=== PATIENT | male | born 1945 | race Caucasian/White ===

== ENCOUNTER 2018-09-11 11:29 | Emergency (ER) | payer MEDICARE, SELFPAY ==
[2018-09-11 11:32] VITALS: BP 154/88; PULSE 63; RESP 14; TEMP 36.7; O2SAT 98; BMI 30.5
--- NOTE | 2018-09-11 11:35 | DI.RAD.S_ITS ---
PROCEDURE: XR HAND RT MIN 3V INDICATIONS: fall, ? dislocated fingers. TECHNIQUE: 3 views of the hand(s) acquired. COMPARISON: None. FINDINGS: Bones: There is dorsal dislocation of the middle phalanges of the 3rd and 4th digits with respect to the proximal phalanges. No definitive fractures are evident. No suspicious osseous lesions are identified. Soft tissues: No suspicious soft tissue calcifications. IMPRESSION: Dislocated proximal interphalangeal joints of the 3rd and 4th digits. Dictated by: Devante Peña M.D. on 09/11/2018 at 11:11 Approved by: Devante Peña M.D. on 09/11/2018 at 11:12
--- NOTE | 2018-09-11 11:52 | ED.UPPEXIN ---
HPI - Extremity Injury (Upper) <Eun Norman PA-C - Last Filed: 09/11/18 20:52> General Chief Complaint: Extremity Injury, Upper Stated Complaint: thinks dislocated multiple fingers right hand Time Seen by Provider: 09/11/18 11:51 Source: patient Mode of arrival: ambulatory Limitations: no limitations History of Present Illness HPI narrative: This 73-year-old right-handed male tripped on his boat, reached out and grabbed something (unsure what) to stop himself and caught his right hand. He has had pain in the medial 3 fingers since and thinks dislocated. He denies any numbness, has noted pain with movement but no weakness. He did not actually fall, denies head contusion or other injury. He thinks tetanus vaccine is up-to-date. Related Data Home Medications Medication Instructions Recorded Confirmed aspirin 81 mg PO DAILY 09/11/18 09/11/18 simvastatin 40 mg PO Q OTHER DAY 09/11/18 09/11/18 Allergies Allergy/AdvReac Type Severity Reaction Status Date / Time No Known Drug Allergies Allergy Verified 09/11/18 11:34 Review of Systems <Eun Norman PA-C - Last Filed: 09/11/18 20:52> Review of Systems ROS Unobtainable: All systems reviewed & are unremarkable except as noted in HPI and below PFSH <Eun Norman PA-C - Last Filed: 09/11/18 20:52> Medical History (Updated 09/11/18 @ 13:05 by Eun Norman PA-C) Hyperlipidemia (Chronic) Surgical History (Updated 09/11/18 @ 12:11 by Eun Norman PA-C) No history of previous surgery (Chronic) Social History Smoking Status: Never smoker Social History Smoking Status: Never smoker Exam <Eun Norman PA-C - Last Filed: 09/11/18 20:52> Narrative Exam Narrative: GENERAL APPEARANCE: Patient sitting comfortably, in no distress. LUNGS: Clear to auscultation bilaterally. HEART: Rate and rhythm regular without murmur, normal S1 and S2, no S3 or S4. MUSCULOSKELETAL: Right hand medial 3 fingers there is moderate effusion from the MC joints to the PIP joints, more pronounced over middle and ring. Tender over these joints, deviated at the PIP joints, no effusion or tenderness elsewhere. Full range of motion of the right wrist, thumb and pointer finger. NEUROVASCULAR: Right hand finger tips are warm and pink, sensation grossly intact On repeat exam following reduction, patient has full range of motion in all of the right hand fingers, strength is intact against resistance, neurovascular intact. Initial Vital Signs Initial Vital Signs: Vital Signs Temperature 98.1 F 09/11/18 11:32 Pulse Rate 63 09/11/18 11:32 Respiratory Rate 14 09/11/18 11:32 Blood Pressure 154/88 H 09/11/18 11:32 Pulse Oximetry 98 09/11/18 11:32 <DO Aravind Garland Last Filed: 09/12/18 07:16> Initial Vital Signs Initial Vital Signs: Vital Signs Temperature 98.1 F 09/11/18 11:32 Pulse Rate 63 09/11/18 11:32 Respiratory Rate 14 09/11/18 11:32 Blood Pressure 154/88 H 09/11/18 11:32 Pulse Oximetry 98 09/11/18 11:32 Procedures <PREMA Aguilar Last Filed: 09/11/18 20:52> [facility] [place] Procedure Side (if applicable): right Additional Comments: Digital block obtained the of palmar approach in right 3rd and 4th fingers with 1% plain lidocaine. Dislocations reduced.. Patient had full range of motion, strength intact against resistance, and sensation intact following. <DO Aravind Garland Last Filed: 09/12/18 07:16> Orthopedic Joint Reduction Joint #1: Time Out Performed: Yes Side: right Joint Reduction Location: finger Analgesia: nerve block Local Anesthesia: lidocaine 1% Technique used: direct manipulation Post-reduction neuro exam: intact Post-reduction vascular: intact Post Reduction X-Ray Obtained: No Splint Applied: No Patient Tolerated Procedure: Well Course <PREMA Aguilar Last Filed: 09/11/18 20:52> Orders Ordered: Discontinued Medications Ibuprofen (Advil) 800 mg PO NOW ONE Stop: 09/11/18 12:08 Last Admin: 09/11/18 12:26 Dose: 800 mg Vital Signs - 8 hr 09/11/18 13:27 Pulse Rate 70 Respiratory Rate 14 Blood Pressure [Left Arm] 139/84 Pulse Oximetry 98 <Denisa Estrada DO - Last Filed: 09/12/18 07:16> Orders Ordered: Discontinued Medications Ibuprofen (Advil) 800 mg PO NOW ONE Stop: 09/11/18 12:08 Last Admin: 09/11/18 12:26 Dose: 800 mg Vital Signs - 8 hr 09/11/18 13:27 Pulse Rate 70 Respiratory Rate 14 Blood Pressure [Left Arm] 139/84 Pulse Oximetry 98 MDM - Extremity Injury (Upper) <Eun Norman PA-C - Last Filed: 09/11/18 20:52> Imaging Data hand: Radiologist's impression: [address] [address] XRay Report Signed Patient: Brina Hicks#: [id number] : 8Acct:[id number] Age/Sex: 73 / MDate of Service: 09/11/18 Loc: ED Accession Number: [id number] Procedure: XR hand RT min 3V Ordering Provider: Denisa Estrada D.O. PROCEDURE: XR HAND RT MIN 3V INDICATIONS: fall, ? dislocated fingers. TECHNIQUE: 3 views of the hand(s) acquired. COMPARISON: None. FINDINGS: Bones: There is dorsal dislocation of the middle phalanges of the 3rd and 4th digits with respect to the proximal phalanges. No definitive fractures are evident. No suspicious osseous lesions are identified. Soft tissues: No suspicious soft tissue calcifications. IMPRESSION: Dislocated proximal interphalangeal joints of the 3rd and 4th digits. Dictated by: Devante Peña M.D. on 09/11/2018 at 11:11 Approved by: Devante Peña M.D. on 09/11/2018 at 11:12 Discharge Plan Departure Patient Disposition: Home Clinical Impression: Dislocation closed, fingers Qualifiers: Encounter type: initial encounter Qualified Code(s): S63.259A - Unspecified dislocation of unspecified finger, initial encounter Discharge Date/Time: 09/11/18 13:30 Interventions: ED Discharge Assessment Last Done: 09/11/18 13:29 Instructions: DI for Finger Dislocation Activity Restrictions/Additional Instructions: Your fingers do not appear broken on the x-rays and we have put the dislocated joints back in place. We have splinted your fingers for now to protect them from further injury, especially while your out of the boat. Please keep the splint on until you see your primary care provider on Friday and reassess (right now your strength in the tendon appears intact and the blood flow is good). Please continue [id number] ibuprofen that you already have as needed for pain. If you have any acute changes such as sudden increase in swelling, pain, immobility, new redness or fever, please return to the emergency room in the interim. Please verify that your tetanus vaccine is up to date Prescriptions: No Action simvastatin 40 mg tablet 40 mg PO Q OTHER DAY RF: 0 aspirin 81 mg PO DAILY RF: 0 Referrals: Sasha Lopez [Other] <Denisa Estrada DO - Last Filed: 09/12/18 07:16> Cosign ED Attending Udayature Attestation: I was asked to help with reduction of fingers. Eun did digital block on both fingers, and I assisted with reduction. Patient was able to flex and extend and move fingers immediately after the reduction. Overall he felt much better. I was immediately available in the department for consultation. Documentation has been reviewed. I agree with assessment and plan.
--- NOTE | 2018-09-11 12:12 | ED_ITS ---
HPI - Extremity Injury (Upper) <Eun Norman PA-C - Last Filed: 09/11/18 20:52> General Chief Complaint: Extremity Injury, Upper Stated Complaint: thinks dislocated multiple fingers right hand Time Seen by Provider: 09/11/18 11:51 Source: patient Mode of arrival: ambulatory Limitations: no limitations History of Present Illness HPI narrative: This 73-year-old right-handed male tripped on his boat, reached out and grabbed something (unsure what) to stop himself and caught his right hand. He has had pain in the medial 3 fingers since and thinks dislocated. He denies any numbness, has noted pain with movement but no weakness. He did not actually fall, denies head contusion or other injury. He thinks tetanus vaccine is up-to-date. Related Data Home Medications Medication Instructions Recorded Confirmed aspirin 81 mg PO DAILY 09/11/18 09/11/18 simvastatin 40 mg PO Q OTHER DAY 09/11/18 09/11/18 Allergies Allergy/AdvReac Type Severity Reaction Status Date / Time No Known Drug Allergies Allergy Verified 09/11/18 11:34 Review of Systems <Eun Norman PA-C - Last Filed: 09/11/18 20:52> Review of Systems ROS Unobtainable: All systems reviewed & are unremarkable except as noted in HPI and below PFSH <Eun Norman PA-C - Last Filed: 09/11/18 20:52> Medical History (Updated 09/11/18 @ 13:05 by Eun Norman PA-C) Hyperlipidemia (Chronic) Surgical History (Updated 09/11/18 @ 12:11 by Eun Norman PA-C) No history of previous surgery (Chronic) Social History Smoking Status: Never smoker Social History Smoking Status: Never smoker Exam <Eun Norman PA-C - Last Filed: 09/11/18 20:52> Narrative Exam Narrative: GENERAL APPEARANCE: Patient sitting comfortably, in no distress. LUNGS: Clear to auscultation bilaterally. HEART: Rate and rhythm regular without murmur, normal S1 and S2, no S3 or S4. MUSCULOSKELETAL: Right hand medial 3 fingers there is moderate effusion from the MC joints to the PIP joints, more pronounced over middle and ring. Tender over these joints, deviated at the PIP joints, no effusion or tenderness elsewhere. Full range of motion of the right wrist, thumb and pointer finger. NEUROVASCULAR: Right hand finger tips are warm and pink, sensation grossly intact On repeat exam following reduction, patient has full range of motion in all of the right hand fingers, strength is intact against resistance, neurovascular intact. Initial Vital Signs Initial Vital Signs: Vital Signs Temperature 98.1 F 09/11/18 11:32 Pulse Rate 63 09/11/18 11:32 Respiratory Rate 14 09/11/18 11:32 Blood Pressure 154/88 H 09/11/18 11:32 Pulse Oximetry 98 09/11/18 11:32 <DO Aravind Garland Last Filed: 09/12/18 07:16> Initial Vital Signs Initial Vital Signs: Vital Signs Temperature 98.1 F 09/11/18 11:32 Pulse Rate 63 09/11/18 11:32 Respiratory Rate 14 09/11/18 11:32 Blood Pressure 154/88 H 09/11/18 11:32 Pulse Oximetry 98 09/11/18 11:32 Procedures <PREMA Aguilar Last Filed: 09/11/18 20:52> [facility] [place] Procedure Side (if applicable): right Additional Comments: Digital block obtained the of palmar approach in right 3rd and 4th fingers with 1% plain lidocaine. Dislocations reduced.. Patient had full range of motion, strength intact against resistance, and sensation intact following. <DO Aravind Garland Last Filed: 09/12/18 07:16> Orthopedic Joint Reduction Joint #1: Time Out Performed: Yes Side: right Joint Reduction Location: finger Analgesia: nerve block Local Anesthesia: lidocaine 1% Technique used: direct manipulation Post-reduction neuro exam: intact Post-reduction vascular: intact Post Reduction X-Ray Obtained: No Splint Applied: No Patient Tolerated Procedure: Well Course <PREMA Aguilar Last Filed: 09/11/18 20:52> Orders Ordered: Discontinued Medications Ibuprofen (Advil) 800 mg PO NOW ONE Stop: 09/11/18 12:08 Last Admin: 09/11/18 12:26 Dose: 800 mg Vital Signs - 8 hr 09/11/18 13:27 Pulse Rate 70 Respiratory Rate 14 Blood Pressure [Left Arm] 139/84 Pulse Oximetry 98 <Denisa Estrada DO - Last Filed: 09/12/18 07:16> Orders Ordered: Discontinued Medications Ibuprofen (Advil) 800 mg PO NOW ONE Stop: 09/11/18 12:08 Last Admin: 09/11/18 12:26 Dose: 800 mg Vital Signs - 8 hr 09/11/18 13:27 Pulse Rate 70 Respiratory Rate 14 Blood Pressure [Left Arm] 139/84 Pulse Oximetry 98 MDM - Extremity Injury (Upper) <Eun Norman PA-C - Last Filed: 09/11/18 20:52> Imaging Data hand: Radiologist's impression: [address] [address] XRay Report Signed Patient: Brina Hicks#: [id number] : 8Acct:[id number] Age/Sex: 73 / MDate of Service: 09/11/18 Loc: ED Accession Number: [id number] Procedure: XR hand RT min 3V Ordering Provider: Denisa Estrada D.O. PROCEDURE: XR HAND RT MIN 3V INDICATIONS: fall, ? dislocated fingers. TECHNIQUE: 3 views of the hand(s) acquired. COMPARISON: None. FINDINGS: Bones: There is dorsal dislocation of the middle phalanges of the 3rd and 4th digits with respect to the proximal phalanges. No definitive fractures are evident. No suspicious osseous lesions are identified. Soft tissues: No suspicious soft tissue calcifications. IMPRESSION: Dislocated proximal interphalangeal joints of the 3rd and 4th digits. Dictated by: Devante Peña M.D. on 09/11/2018 at 11:11 Approved by: Devante Peña M.D. on 09/11/2018 at 11:12 Discharge Plan Departure Patient Disposition: Home Clinical Impression: Dislocation closed, fingers Qualifiers: Encounter type: initial encounter Qualified Code(s): S63.259A - Unspecified dislocation of unspecified finger, initial encounter Discharge Date/Time: 09/11/18 13:30 Interventions: ED Discharge Assessment Last Done: 09/11/18 13:29 Instructions: DI for Finger Dislocation Activity Restrictions/Additional Instructions: Your fingers do not appear broken on the x-rays and we have put the dislocated joints back in place. We have splinted your fingers for now to protect them from further injury, especially while your out of the boat. Please keep the splint on until you see your primary care provider on Friday and reassess (right now your strength in the tendon appears intact and the blood flow is good). Please continue [id number] ibuprofen that you already have as needed for pain. If you have any acute changes such as sudden increase in swelling, pain, immobility, new redness or fever, please return to the emergency room in the interim. Please verify that your tetanus vaccine is up to date Prescriptions: No Action simvastatin 40 mg tablet 40 mg PO Q OTHER DAY RF: 0 aspirin 81 mg PO DAILY RF: 0 Referrals: Sasha Lopez [Other] <Denisa Estrada DO - Last Filed: 09/12/18 07:16> Cosign ED Attending Udayature Attestation: I was asked to help with reduction of fingers. Eun did digital block on both fingers, and I assisted with reduction . Patient was able to flex and extend and move fingers immediately after the reduction. Overall he felt much better. I was immediately available in the department for consultation. Documentation farias s been reviewed. I agree with assessment and plan.
[2018-09-11] MEDS: IBUPROFEN 400 MG TABLET 800 MG PO (12:26)
[2018-09-11 13:27] VITALS: BP 139/84; PULSE 70; RESP 14; O2SAT 98
== END 2018-09-11 13:30 | disposition home or self-care (01) ==
PROVIDERS: Emergency Provider Internal Medicine
DX: S63.282A Dislocation of proximal interphalangeal joint of right middle finger, initial encounter (principal); S63.284A Dislocation of proximal interphalangeal joint of right ring finger, initial encounter; W18.40XA Slipping, tripping and stumbling without falling, unspecified, initial encounter
CPT/HCPCS: 26770; 29130; 64450; 73130; 99282; 99283